=== PATIENT | female | born 1945 | race Caucasian/White ===

== ENCOUNTER → 2019-07-28 09:30 | Outpatient (CLI) | payer MEDICARE, BC, SELFPAY ==
--- NOTE | 2019-07-28 | PATH_ITS ---
Note [facility] Accession Number: [id number] TESTS RESULT FLAG UNITS REF RANGE LAB Clinician Provided Cytology Information No. of containers..02 Previously Prepared Cytology Slide 35 Unknown Storage/container code(s) LEFT THYROID NODULE DIAGNOSIS: 01 LEFT THYROID NODULE NEGATIVE FOR MALIGNANT CELLS. [place] CATEGORY II. SPECIMEN CONSISTS OF MARGINALLY ADEQUATE NUMBER OF BENIGN FOLLICULAR CELLS, ABUNDANT HEMOSIDERIN-LADEN MACROPHAGES, AND SOME COLLOID, CONSISTENT WITH A CYSTICALLY DEGENERATED COLLOID NODULE. Pathologist ICD10: 01 E04.1 01 FINDINGS: RIGHT THYROID LOBE IS 4.3 X 1.4 X 1.6 CM. LEFT THYROID LOBE 4.0 X 1.6 1.2 CM. THYROID GLAND IS DIFFUSELY HETEROGENEOUS. ON THE RIGHT, 1.0 CM ROUND, CIRCUMSCRIBED HYPOECHOIC SOLID NODULE ALONG THE POSTERIOR ASPECT OF OF THE INFERIOR LOBE IS PRESENT. NO INTERNAL CALCIFICATIONS. THERE ARE 2 SMALL CYSTS IN THE RIGHT MID THYROID MEASURING 2 AND 3 CM. IN THE SUPERIOR LEFT THYROID LOBE, THERE IS A CIRCUMSCRIBED 1.9 X 1.2 X 1.6 CM CYSTIC AND SOLID NODULE. THERE ARE SEVERAL ECHOGENIC FOCI IN THE SOLID PORTION OF THE NODULE. NODULE IS WIDER THAN TALL. IMPRESSION: 1. 1.9 CM CYSTIC AND SOLID LEFT THYROID NODULE. THE CYSTIC PORTION OF THE NODULE HAS INCREASED FROM REMOTE CTs. NODULE IS MILD TO MODERATELY SUSPICIOUS. CONSIDER FINE-NEEDLE ASPIRATION OF THE SOLID COMPONENT. 2. 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 CORRELATION WITH PARATHYROID HORMONE LEVELS RECOMMENDED 01 Angelina Hayes MD, Pathologist NPI- [id number] Leonardo Crain, Electrical Products Sales Engineer ([facility]) 01 30 CC, PINK, HAZY RECIEVED: 6 ALCOHOL FIXED AND 6 QUICK STAINED SLIDES WITH 1 RNA VIAL FOR FURTHER TESTING. /[facility] 07/29/2019 0439 [facility] FLAG LEGEND: L-Low Normal,H-High Normal,LL-Alert Low,HH-Alert High <-Panic Low,>-Panic High,A-Abnormal,AA-Critical Abnormal Performed at: 01 =Z [facility] [address] [place] [address] [address], [place] [address] Rohan Wilks MD, Performed at: 01 [facility] [address] [place] [address] [address], [place], [place] [id number] MD Rohan Wilks MD Phone: [phone]
--- NOTE | 2019-07-28 | DI.US.S_ITS ---
PROCEDURE: US FINE NEEDLE ASPIRATION INDICATIONS: LEFT THYROID MASS TECHNIQUE: The indications, alternatives, benefits, risks, and complications of the procedure were explained to the patient. Written informed consent was obtained and placed in the chart. The thyroid region was examined sonographically and a site was chosen for ultrasound guided percutaneous sampling. The skin was prepared and draped in the usual fashion, and anesthetized with 1% lidocaine infiltrated from the skin down to the thyroid gland. Multiple passes were then performed, with contents emptied into an appropriate pathology specimen container. A bandage was applied to the area of access at completion of the study. COMPARISON: None. FINDINGS: Location(s) of lesion(s) sampled: Left thyroid lobe [place]: 25 gauge hypodermic needles. Number of passes: 6, including a 22 gauge aspiration needle utilizing syringe vacuum. Medications: 1% lidocaine for local anaesthesia. Complications: None. IMPRESSION: Successful ultrasound-guided thyroid nodule fine needle aspiration, with cytology results pending. Please see chart below for management recommendations based on cytology results. [facility] ReportingRecommendationsNon-diagnostic* Repeat US-guided FNA, with on-site cytology evaluation if possible. * Repeated non-diagnostic nodules without high suspicion US features: close observation vs surgical consult. * Consider surgery if nodule has high suspicion US features, grows >20% in 2 dimensions on followup, or patient has clinical risk factors for malignancy. Benign* If nodule has high suspicion US features: repeat US and FNA within 12 months. * If nodule has low to intermediate suspicion US features: repeat US at 12-24 months. If nodule grows (20% increase in at least 2 dimensions, with minimal increase of 2 mm or >50% change in volume), or development of new suspicious US features, then repeat FNA or continue followup. * If nodule has very low suspicion US features: followup US at >24 months. Atypia of undetermined significance, follicular lesion of undetermined significanceRepeat FNA, molecular testing, followup US, or surgical consult.Follicular neoplasm, suspicious for follicular neoplasmSurgical consult; also consider molecular testing. Suspicious for malignancySurgical consult.MalignantSurgical consult. Dictated by: Sam Adhikari M.D. on 07/28/2019 at 13:37 Approved by: Sam Adhikari M.D. on 07/28/2019 at 13:38
== END ==
PROVIDERS: Family Provider Nurse Practitioner Family; Referring Provider Family Medicine; Visit Provider Family Medicine
DX: E04.1 Nontoxic single thyroid nodule (principal)
CPT/HCPCS: 10005